=== PATIENT | female | born 1940 | race Caucasian/White ===

== ENCOUNTER 2019-01-05 13:58 | Observation (INO) ==
[2019-01-05] MEDS ORDERED: 0.9 % Sodium Chloride 1,000 ML IVC ONE (14:17)
[2019-01-05 14:52] LABS: Basophils # 0.1 K/mcL (0.0-0.2); Basophils % 0.7 %; Eosinophils # 0.2 K/mcL (0.0-0.6); Eosinophils % 1.9 %; Hematocrit 40.5 % (35.3-44.9); Hemoglobin 12.5 g/dL (11.5-15.4); Immature Granulocytes % 0.7 % (0-4); Lymphocytes # 1.2 K/mcL (0.6-4.6); Lymphocytes % 14.6 %; Mean Corpuscular HGB Conc 30.9 g/dL (31.6-35.5); Mean Corpuscular Hemoglobin 28.3 pg (28.0-33.3); Mean Corpuscular Volume 91.8 fL (83.0-100.0); Mean Platelet Volume 10.2 fL (9.4-12.4); Monocytes % 12.3 %; Neutrophils # 5.6 K/mcL (1.6-8.9); Platelet Count 182 K/mcL (140-400); Red Blood Count 4.41 M/mcL (3.82-4.97); Segmented Neutrophils % 69.8 %
[2019-01-05 14:58] LABS: Bilirubin,Urine Negative (Negative); Blood,Urine Negative (Negative); Clarity,Urine Clear (Clear); Color,Urine Yellow (Yellow); Glucose,Urine (UA) Normal (Normal); Ketones,Urine Negative (Negative); Leukocyte Esterase,Urine Trace (Negative); Nitrite,Urine Negative (Negative); Protein,Urine Negative (Neg-Trace); Urobilinogen,Urine Normal (Normal)
[2019-01-05 14:59] LABS: Bacteria,Urine None Seen per hpf (None-Few); Hyaline Casts,Urine None Seen per lpf (None-Few); RBC,Urine 0-3 per hpf (0-3); Squamous Epithelial Cell,Urine Many per lpf (None-Few)
[2019-01-05 15:11] LABS: INR 1.2
--- NOTE | 2019-01-05 15:41 | Emergency Department Note ---
Disposition Clinical Impression: Transient confusion, Bronchitis Disposition: Admitted As Inpatient Time of Disposition: 16:39 General Adult HPI - General Chief complaint: ED Neuro Symptoms/Deficit Stated complaint: Stroke from Dr. Fung Time Seen by Provider: 01/05/19 14:10 Source: patient, other Limitations: altered mental status Nursing Notes Reviewed: Yes Vital Signs Reviewed: Yes - History of Present Illness HPI Narrative: Female patient presenting to emergency department from Dr. Fuentes's office. She was going in for a general checkup but she does have bronchitis and is being treated with antibiotics and cough suppressants currently. She was noted to be confused when she went back with Dr. Fung. The daughter is at bedside with the patient and believes that the patient may have gotten a little anxious whenever she was asked to come back without her. The daughter states that they are generally around each other generally answer the questions for each other. The patient has been treated for bronchitis and is on antibiotic as well as a cough suppressant which include codeine. The patient has no complaints currently other than she states she is confused. Pain Scale: 0 - Related Data Home Medications Medication Instructions Recorded Confirmed RX: Duloxetine HCl [Cymbalta] 120 mg PO DAILY 08/12/15 01/05/19 Fluticasone/Vilanterol [Breo 1 each IH DAILY 07/15/18 01/05/19 Ellipta 200-25 Mcg INH] Montelukast [Singulair] 10 mg PO DAILY 07/15/18 01/05/19 RX: Furosemide [Lasix] 20 mg PO BID 07/15/18 01/05/19 RX: Lisinopril 2.5 mg PO DAILY 07/15/18 01/05/19 Methylcellulose [Citrucel] 500 mg PO DAILY 10/20/18 01/05/19 RX: Docusate [Colace] 100 mg PO DAILY 10/20/18 01/05/19 Apixaban [Eliquis] 1.25 mg PO BID 01/05/19 01/05/19 Metoprolol [Lopressor] 12.5 mg PO BID 01/05/19 01/05/19 RX: Nitroglycerin [Nitrostat] 0.4 mg SL PRN PRN 01/05/19 01/05/19 Theophylline Anhydrous 200 mg PO BID 01/05/19 01/05/19 [Theophylline] Allergies Allergy/AdvReac Type Severity Reaction Status Date / Time albuterol Allergy Difficulty Verified 01/03/19 17:53 Breathing codeine Allergy Difficulty Verified 01/03/19 17:53 Breathing Metolazone Allergy Difficulty Verified 01/03/19 17:53 Breathing morphine Allergy See Verified 01/03/19 17:53 Comments rubber Allergy Hives Uncoded 01/03/19 17:53 All systems ED: reviewed and negative except as stated. Review of Systems: As Per HPI Constitutional: Denies: fever Cardiovascular: Denies: chest pain, syncope Respiratory: Reports: cough, dyspnea, sputum production Gastrointestinal: Denies: abdominal pain, nausea, vomiting, diarrhea Integumentary: Denies: rash Neurological: Reports: weakness Past Medical History - Past Medical History Attestation: Yes The following information was validated with the patient. 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 Absent: scleral icterus, conjunctival injection - ENT ENT exam: normal exam, normal oropharynx, mucous membranes moist - Neck Neck exam: Present: normal inspection, full ROM, trachea midline - Chest Chest inspection: Present: normal inspection, symmetric chest wall rise - Respiratory Respiratory exam: Present: normal lung sounds bilaterally. Absent: respiratory distress - Cardiovascular Cardiovascular exam: Present: regular rate, normal rhythm, normal heart sounds - Abdominal Exam Abdominal exam: Present: soft, Non-Tender. Absent: tenderness, distention, guarding, rebound, rigidity, organomegaly - Extremities Exam Extremities exam: Present: normal inspection, full ROM. Absent: tenderness, pedal edema - Neurological Exam Neurological exam: Present: alert, CN II-XII intact, other (Good motor function. 5 out of 5 strength bilaterally. No decrease in sensation. Good [id number] bilaterally.) - Psychiatric Psychiatric exam: Present: normal affect, normal mood - Skin Skin exam: Present: warm, dry, intact, normal color. Absent: rash, cyanosis, diaphoresis Course Course Narrative: Female patient with transient confusion. Daughter states that this generally happens when the patient gets a urinary tract infection. She is currently being treated for bronchitis. She denies any fevers or chills. She does report that she has a productive cough. Has been seen by Dr. osorio today for this however was found to be markedly confused after she was taken back to the room by herself. Currently patient has no neuro deficits other than being confused. He is pleasant with no distress noted. Vitals are stable. We will get a CT of p atient's head at this time until basic lab workup. Again daughter is insistent that these symptoms are consistent with when she has had a UTI previously. The daughter reports no falls. Patient does take Eliquis daily. - Reevaluation(s) Reevaluation #1: Upon reevaluation patient is back at baseline. She has no complaints. She states that she does get confused after she takes her cough medication occasionally. The daughter again states that she believes that the patient just got anxious while she was taken back with Dr. fung. Daughter is insistent that the patient does have these symptoms happen to her frequently. The daughter states that she generally associated with a urinary tract infection. She is the patient has not had a fever recently but she does have a productive cough. We will admit patient to the hospital for her transient confusion. Time: 16:10 - Consultations Consultation #1: Dr. Matos accepted patient in stable condition. Time: 16:36 Vital Signs Temperature 98.0 F 01/05/19 14:00 Pulse Rate 64 01/05/19 14:00 Respiratory Rate 20 01/05/19 14:00 Blood Pressure 145/68 01/05/19 14:00 O2 Sat by Pulse Oximetry 95 01/05/19 14:00 Temperature 98.3 F 01/05/19 14:19 Pulse Rate 63 01/05/19 15:47 Respiratory Rate 20 01/05/19 15:47 Blood Pressure 149/73 01/05/19 15:47 O2 Sat by Pulse Oximetry 100 01/05/19 15:47 Oxygen Delivery Oxygen Delivery Nasal Cannula Medical Decision Making - Medical Records Medical records reviewed: Yes I reviewed the patient's medical records. - Lab Data Lab results reviewed: Yes I reviewed the patient's lab results. Result diagrams: 01/05/19 14:35 01/05/19 15:19 Lab Results 01/05/19 01/05/19 01/05/19 Range/Units 14:25 14:35 14:35 WBC 8.0 (4.3-11.1) K/mcL RBC 4.41 (3.82-4.97) M/mcL Hgb 12.5 (11.5-15.4) g/dL Hct 40.5 (35.3-44.9) % MCV 91.8 (83.0-100.0) fL MCH 28.3 (28.0-33.3) pg MCHC 30.9 L (31.6-35.5) g/dL RDW 14.0 (11.5-14.5) % Plt Count 182 (140-400) K/mcL MPV 10.2 (9.4-12.4) fL Immature Gran % 0.7 (0-4) % Seg Neutrophils % 69.8 % Lymphocytes % 14.6 % Monocytes % 12.3 % Eosinophils % 1.9 % Basophils % 0.7 % Neutrophils # 5.6 (1.6-8.9) K/mcL Lymphocytes # 1.2 (0.6-4.6) K/mcL Monocytes # 1.0 (0.0-1.3) K/mcL Eosinophils # 0.2 (0.0-0.6) K/mcL Basophils # 0.1 (0.0-0.2) K/mcL PT 14.0 H (9.4-12.1) Seconds INR 1.2 APTT 25.0 L (26.0-36.0) Seconds Sodium (136-145) mEq/L Potassium (3.5-5.1) mEq/L Chloride (98-107) mEq/L Carbon Dioxide (23-29) mEq/L BUN (8-23) mg/dL Creatinine (0.60-1.20) mg/dL Est GFR ( Amer) (> 60) Est GFR (Non-Af Amer) (> 60) BUN/Creatinine Ratio (6-26) Glucose (70-105) mg/dL Calculated Osmolality (280-300) Lactic Acid (0.5-2.2) mmol/L Calcium (8.6-10.3) mg/dL Total Bilirubin (0.3-1.0) mg/dL AST (13-39) Units/L ALT (7-52) Units/L Alkaline Phosphatase (34-104) Units/L Creatine Kinase (30-223) Units/L Troponin I < 0.03 (< 0.04) ng/mL Serum Total Protein (6.4-8.9) g/dL Albumin (3.5-5.7) g/dL Globulin (2.4-3.5) g/dL Albumin/Globulin Ratio (1.1-2.2) Urine Color (Yellow) Urine Clarity (Clear) Urine pH (5.0-8.0) pH Units Ur Specific [place] (1.010-1.025) Urine Protein (Neg-Trace) mg/dL Urine Glucose (UA) (Normal) mg/dL Urine Ketones (Negative) mg/dL Urine Blood (Negative) Urine Nitrite (Negative) Urine Bilirubin (Negative) Urine Urobilinogen (Normal) mg/dL Ur Leukocyte Esterase (Negative) Urine Microscopic RBC (0-3) per hpf Urine Microscopic WBC (0-3) per hpf Ur Squamous Epith Cells (None-Few) per lpf Urine Bacteria (None-Few) per hpf Hyaline Casts (None-Few) per lpf Ur Culture Indicated? (NO) Ethyl Alcohol (Less than 10) mg/dL Specimen Rejected 01/05/19 01/05/19 01/05/19 Range/Units 14:35 14:46 15:19 WBC (4.3-11.1) K/mcL RBC (3.82-4.97) M/mcL Hgb (11.5-15.4) g/dL Hct (35.3-44.9) % MCV (83.0-100.0) fL MCH (28.0-33.3) pg MCHC (31.6-35.5) g/dL RDW (11.5-14.5) % Plt Count (140-400) K/mcL MPV (9.4-12.4) fL Immature Gran % (0-4) % Seg Neutrophils % % Lymphocytes % % Monocytes % % Eosinophils % % Basophils % % Neutrophils # (1.6-8.9) K/mcL Lymphocytes # (0.6-4.6) K/mcL Monocytes # (0.0-1.3) K/mcL Eosinophils # (0.0-0.6) K/mcL Basophils # (0.0-0.2) K/mcL PT (9.4-12.1) Seconds INR APTT (26.0-36.0) Seconds Sodium 139 (136-145) mEq/L Potassium 4.3 (3.5-5.1) mEq/L Chloride 103 (98-107) mEq/L Carbon Dioxide 29 (23-29) mEq/L BUN 36 H (8-23) mg/dL Creatinine 1.60 H (0.60-1.20) mg/dL Est GFR ( Amer) 38 L (> 60) Est GFR (Non-Af Amer) 31 L (> 60) BUN/Creatinine Ratio 23 (6-26) Glucose 110 H (70-105) mg/dL Calculated Osmolality 297 (280-300) Lactic Acid (0.5-2.2) mmol/L Calcium 9.6 (8.6-10.3) mg/dL Total Bilirubin 0.4 (0.3-1.0) mg/dL AST 13 (13-39) Units/L ALT 9 (7-52) Units/L Alkaline Phosphatase 73 (34-104) Units/L Creatine Kinase 64 (30-223) Units/L Troponin I (< 0.04) ng/mL Serum Total Protein 6.4 (6.4-8.9) g/dL Albumin 3.5 (3.5-5.7) g/dL Globulin 2.9 (2.4-3.5) g/dL Albumin/Globulin Ratio 1.2 (1.1-2.2) Urine Color Yellow (Yellow) Urine Clarity Clear (Clear) Urine pH 6.0 (5.0-8.0) pH Units Ur Specific [place] 1.010 (1.010-1.025) Urine Protein Negative (Neg-Trace) mg/dL Urine Glucose (UA) Normal (Normal) mg/dL Urine Ketones Negative (Negative) mg/dL Urine Blood Negative (Negative) Urine Nitrite Negative (Negative) Urine Bilirubin Negative (Negative) Urine Urobilinogen Normal (Normal) mg/dL Ur Leukocyte Esterase Trace H (Negative) Urine Microscopic RBC 0-3 (0-3) per hpf Urine Microscopic WBC 5-15 H (0-3) per hpf Ur Squamous Epith Cells Many H (None-Few) per lpf Urine Bacteria None Seen (None-Few) per hpf Hyaline Casts None Seen (None-Few) per lpf Ur Culture Indicated? NO. A (NO) Ethyl Alcohol < 10 (Less than 10) mg/dL Specimen Rejected Hemolyzed 01/05/19 Range/Units 15:46 WBC (4.3-11.1) K/mcL RBC (3.82-4.97) M/mcL Hgb (11.5-15.4) g/dL Hct (35.3-44.9) % MCV (83.0-100.0) fL MCH (28.0-33.3) pg MCHC (31.6-35.5) g/dL RDW (11.5-14.5) % Plt Count (140-400) K/mcL MPV (9.4-12.4) fL Immature Gran % (0-4) % Seg Neutrophils % % Lymphocytes % % Monocytes % % Eosinophils % % Basophils % % Neutrophils # (1.6-8.9) K/mcL Lymphocytes # (0.6-4.6) K/mcL Monocytes # (0.0-1.3) K/mcL Eosinophils # (0.0-0.6) K/mcL Basophils # (0.0-0.2) K/mcL PT (9.4-12.1) Seconds INR APTT (26.0-36.0) Seconds Sodium (136-145) mEq/L Potassium (3.5-5.1) mEq/L Chloride (98-107) mEq/L Carbon Dioxide (23-29) mEq/L BUN (8-23) mg/dL Creatinine (0.60-1.20) mg/dL Est GFR ( Amer) (> 60) Est GFR (Non-Af Amer) (> 60) BUN/Creatinine Ratio (6-26) Glucose (70-105) mg/dL Calculated Osmolality (280-300) Lactic Acid 0.8 (0.5-2.2) mmol/L Calcium (8.6-10.3) mg/dL Total Bilirubin (0.3-1.0) mg/dL AST (13-39) Units/L ALT (7-52) Units/L Alkaline Phosphatase (34-104) Units/L Creatine Kinase (30-223) Units/L Troponin I (< 0.04) ng/mL Serum Total Protein (6.4-8.9) g/dL Albumin (3.5-5.7) g/dL Globulin (2.4-3.5) g/dL Albumin/Globulin Ratio (1.1-2.2) Urine Color (Yellow) Urine Clarity (Clear) Urine pH (5.0-8.0) pH Units Ur Specific [place] (1.010-1.025) Urine Protein (Neg-Trace) mg/dL Urine Glucose (UA) (Normal) mg/dL Urine Ketones (Negative) mg/dL Urine Blood (Negative) Urine Nitrite (Negative) Urine Bilirubin (Negative) Urine Urobilinogen (Normal) mg/dL Ur Leukocyte Esterase (Negative) Urine Microscopic RBC (0-3) per hpf Urine Microscopic WBC (0-3) per hpf Ur Squamous Epith Cells (None-Few) per lpf Urine Bacteria (None-Few) per hpf Hyaline Casts (None-Few) per lpf Ur Culture Indicated? (NO) Ethyl Alcohol (Less than 10) mg/dL Specimen Rejected - Radiology Data Radiology results reviewed: Yes I reviewed the patient's radiology results. Chest X-Ray 01/05/19 14:14 IMPRESSION: No acute process. D/ / Kushal Enciso MD / Kushal Enciso MD Interpreting Provider: Kushal Enciso MD Head CT 01/05/19 14:16 IMPRESSION: No acute intracranial abnormality. Diffuse atrophic changes with findings suggesting chronic microvascular ischemia D/ / Kushal Enciso MD / Kushal Enciso MD Interpreting Provider: Kushal Enciso MD - EKG Data EKG #1 EKG attestation: Yes I reviewed and interpreted this EKG. EKG results narrative: Sinus rhythm at a rate of 73. ID interval is 152. QRS duration is 102. QT is 435. QTC is 453 by. Patient does have 2 PVCs on this tracing noted. No signs of acute ischemia. For R-wave progression. No significant change from previous EKG dated 09/08/2018. Attestation Statement - Attestation Attestation: Resident Attestation: I examined this patient and my medical decision making was reviewed with the Resident Physician. I agree with the documented findings, disposition and treatment plan as described except to the extent set forth below. We independently had [id number] contact with the patient. Patient presenting from primary care physician office for episode of confusion while in her office. Patient seems not know where she was or what was going on. There was no seizure-like activity. She has family at bedside which states this has happened with previous UTI. Patient does have some confusion but is able to respond to questions and talk without slurred speech. Patient has no other focal neurologic deficits. Due to confusion being her only symptom at this time and previous explanations, a stroke alert was not activated. Further workup for underlying infectious versus other etiology initiated.
[2019-01-05 16:16] LABS: Alanine Aminotransferase 9 Units/L (7-52); Albumin 3.5 g/dL (3.5-5.7); Albumin/Globulin Ratio 1.2 (1.1-2.2); Alkaline Phosphatase 73 Units/L (34-104); Aspartate Amino Transferase 13 Units/L (13-39); BUN/Creatinine Ratio 23 (6-26); Bilirubin,Total 0.4 mg/dL (0.3-1.0); Blood Urea Nitrogen 36 mg/dL (8-23); Calcium 9.6 mg/dL (8.6-10.3); Carbon Dioxide 29 mEq/L (23-29); Chloride 103 mEq/L (98-107); Creatine Kinase 64 Units/L (30-223); Ethanol < 10 mg/dL (Less than 10); Globulin 2.9 g/dL (2.4-3.5); Glucose 110 mg/dL (70-105); Osmolality,Calculated 297 (280-300); Potassium 4.3 mEq/L (3.5-5.1); Sodium 139 mEq/L (136-145); Total Protein 6.4 g/dL (6.4-8.9); eGFR For Non-African Americans 31 (> 60)
[2019-01-05] MEDS ORDERED: Naloxone 0.4 MG/ML INJ IVP PRN (19:43)
--- NOTE | 2019-01-05 21:41 | Internal Med History&Physical ---
Date of Encounter: 01/05/19 Time of Encounter: 19:00 Internal Medicine - H&P: HPI Chief complaint: Confusion Admitted From: Home Plans for Post Hospital Care: Home History of present illness: The patient is an 78-year old woman, who has had long-standing history of multiple medical problems (mentioned below in past medical history). She has had symptoms suggesting upper respiratory infection (possible acute bronchitis) for about 10 days. It was about 10 days ago when she was evaluated by her primary care physicianreceived some medications including cough syrup with codeine. Shortly after she developed periods of confusion (out is by her family). The patient does not feel confused. She has a low bit trouble to remember things from the near past. Otherwise, she feels good. She continues to have relatively mild cough but not wheezing. Denies fever and chills. She has no GI or symptoms. PAST MEDICAL HX: Atrial fibrillation, coronary artery disease, COPD, type 2 diabetes mellitus, hypertension and hyperlipidemia. She was diagnosed with myocardial infarction and DVT in the past. She has developed CKD stage III secondary to long-standing type 2 diabetes mellitus and hypertension. She takes daily Lasix. It is likely for treatment of diastolic heart failure. Her last echocardiogram was done in 2016. HDL ferris normal ejection fraction and mild concentric left ventricular hypertrophy. PAST FAMILY HX: See below PAST SOCIAL HX: See below Medications: She takes multiple medications including Eliquis, Lopressor, lisinopril, Lasix, Breo Ellipta, Lipitor. Theophylline, Singulair, Colace, Citrucel and Cymbalta. She was recently started on some cough syrup, likely containing codeine. REVIEW OF SYSTEMS: All 14 organ systems were reviewed by me with the patient. Positive and pertinent negative findings are listed above. The rest of organ systems is negative. PHYSICAL EXAM: Skin: Free of rash and discoloration. Eyes: Sclera is white. There is no discharge from eyes. ENMT: Oral/pharyngeal mucosa is normal in appearance. There is no discharge from nose or ears. Respiratory: Normal breath sounds with no crackles and wheezes bilaterally. CV: Heart is regular with no gallop or murmur. GI: Abdomen is flat and soft with no palpable mass or visceromegaly. : There is no tenderness in patient's flanks bilaterally. Neuro exam: He has good strength in upper and lower extremities. He has normal eye movements. Psychiatric: He has normal affect. His thought process is appropriate to the situation. ADDITIONAL DATA: CBC shows normal findings. Pro time INR is 1.2. Electrolytes are normal. Creatinine is 1.60 with a GFR of 31. She had creatinine of 1.25 with a GFR of 41 on 09/09/18. Hepatic panel is normal. UA does not show any significant findings. CT of brain/head does not show any acute intracranial abnormality. It shows diffuse atrophic changes with findings suggesting chronic microvascular ischemia. Chest x-ray shows normal findings. A/P: Confusion. Likely secondary to medications. I would not give her anything with codeine or similar. I will also put hold on theophylline and Cymbalta. Upper respiratory infection/possible COPD exacerbation. I will offer her every 6 hours nebulizer treatment with DuoNeb. She will get low-dose prednisone at 20 mg every morning. Her other medical problems are listed in past medical history. They seem to be stable/under control. Past Med Surg Social Fam HX - Past Medical History Medical history: asthma, atrial fibrillation, COPD, coronary artery disease, DVT, diabetes, hyperlipidemia, hypertension, myocardial infarction, renal disease, venous stasis Additional medical history: Pinched nerves, sciatica, bulging disc. Psychiatric history: anxiety, depression - Past Surgical History Surgical History: appendectomy, breast surgery, cholecystectomy, coronary bypass (CABG), hysterectomy Additional surgical history: Breast reduction. Back stimulator - Social History Smoking Status: Former smoker Smokeless Tobacco Status: No Alcohol use: none Drug use: none - Family History Mother Living Status: Hx Family Cardiac Disorders: Yes (Had rheumatic fever as a child.) Father Living Status: Hx Family Cardiac Disorders: Yes Hx Family Respiratory Disorders: Yes (Lung cancer) Hx Family Cancer: Yes Hx Family Endocrine Disorder: Yes (DM) Brother Living Status: Still Living Hx Family Cardiac Disorders: Yes Hx Family Endocrine Disorder: Yes (DM) Internal Medicine - H&P: Meds Duloxetine HCl [Cymbalta] 120 mg PO DAILY 08/12/15 [History] Fluticasone/Vilanterol [Breo Ellipta 200-25 Mcg INH] 1 each IH DAILY 07/15/18 [History] Furosemide [Lasix] 20 mg PO BID 07/15/18 [History] Lisinopril 2.5 mg PO DAILY 07/15/18 [History] Montelukast [Singulair] 10 mg PO DAILY 07/15/18 [History] Docusate [Colace] 100 mg PO DAILY 10/20/18 [History] Methylcellulose [Citrucel] 500 mg PO DAILY 10/20/18 [History] Apixaban [Eliquis] 1.25 mg PO BID 01/05/19 [History] Metoprolol [Lopressor] 12.5 mg PO BID 01/05/19 [History] Nitroglycerin [Nitrostat] 0.4 mg SL PRN PRN 01/05/19 [History] Theophylline Anhydrous [Theophylline] 200 mg PO BID 01/05/19 [History] Allergy/AdvReac Type Severity Reaction Status Date / Time albuterol Allergy Difficulty Verified 01/03/19 17:53 Breathing codeine Allergy Difficulty Verified 01/03/19 17:53 Breathing Metolazone Allergy Difficulty Verified 01/03/19 17:53 Breathing morphine Allergy See Verified 01/03/19 17:53 Comments rubber Allergy Hives Uncoded 01/03/19 17:53 - Constitutional Vitals: Temp Pulse Resp BP Pulse Ox 98.4 F 74 20 114/66 100 01/05/19 21:27 01/05/19 21:27 01/05/19 21:27 01/05/19 21:27 01/05/19 21:27 General appearance: Present: A&O X 3, no acute distress, answers questions appropriately Exam: xx Internal Med - H&P Results - Labs CBC & Chem 7: 01/05/19 14:35 01/05/19 15:19 Labs: Short CBC 01/05/19 Range/Units 14:35 WBC 8.0 (4.3-11.1) K/mcL Hgb 12.5 (11.5-15.4) g/dL Hct 40.5 (35.3-44.9) % Plt Count 182 (140-400) K/mcL Neutrophils # 5.6 (1.6-8.9) K/mcL BMP 01/05/19 15:19 Sodium 139 Potassium 4.3 Chloride 103 Carbon Dioxide 29 BUN 36 H Creatinine 1.60 H Glucose 110 H Calcium 9.6 Cardiac Enzymes 01/05/19 Range/Units 14:35 Troponin I < 0.03 (< 0.04) ng/mL Liver Function 01/05/19 Range/Units 15:19 Total Bilirubin 0.4 (0.3-1.0) mg/dL AST 13 (13-39) Units/L ALT 9 (7-52) Units/L Alkaline Phosphatase 73 (34-104) Units/L Albumin 3.5 (3.5-5.7) g/dL Urine 01/05/19 Range/Units 14:46 Urine Color Yellow (Yellow) Urine Clarity Clear (Clear) Urine pH 6.0 (5.0-8.0) pH Units Ur Specific [place] 1.010 (1.010-1.025) Urine Protein Negative (Neg-Trace) mg/dL Urine Glucose (UA) Normal (Normal) mg/dL - Impressions ITS Impressions Chest X-Ray 01/05/19 14:14 IMPRESSION: No acute process. D/ / Kushal Enciso MD / Kushal Enciso MD Interpreting Provider: Kushal Enciso MD Head CT 01/05/19 14:16 IMPRESSION: No acute intracranial abnormality. 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
[2019-01-05] MEDS ORDERED: Nitroglycerin 0.4 MG TAB.SUBL SL PRN (22:08)
[2019-01-06] MEDS: Ipratropium/Albuterol Neb 3 ML IH SCH ×3 (03:49→15:39)
[2019-01-06] MEDS ORDERED: predniSONE 20 MG TABLET PO SCH (09:00)
[2019-01-06] MEDS ORDERED: Furosemide 40 MG TABLET PO SCH (09:00)
[2019-01-06] MEDS ORDERED: METHYLCELLULOSE 500 MG PO SCH (09:00)
[2019-01-06] MEDS ORDERED: Apixaban 2.5 MG TABLET PO SCH (09:00)
[2019-01-06 14:25] LABS: Calcium 9.9 mg/dL (8.6-10.3); Potassium 4.4 mEq/L (3.5-5.1)
[2019-01-06 14:27] VITALS: BP 95/53
--- NOTE | 2019-01-06 16:49 | Discharge Summary ---
Orders not resulted at time of discharge: Pending orders 01/06/19 10:19 Culture,Sputum with Gram Stain [] Stat Date of Encounter: 01/06/19 Time of Encounter: 16:37 - Discharge Diagnosis (1) Confusion Priority: Primary Status: Acute (2) URI (upper respiratory infection) Priority: Primary Status: Acute Qualifiers: URI type: unspecified viral URI Qualified Code(s): J06.9 - Acute upper respiratory infection, unspecified (3) COPD exacerbation Priority: Secondary Status: Chronic (4) Hypertensive renal disease with renal failure Priority: Secondary Status: Chronic Hospital course: HOSPITAL COURSE: The patient is an 78-year-old woman. She presented to us with confusion in the last few days preceding this admission. It started shortly after she received treatments for upper respiratory tract infection; need to include some cough syrup suspected to have codeine. CT of head/brain did not reveal any acute abnormality. CBC was normal. Electrolytes were normal. Creatinine was 1.60her baseline (CKD stage III). We discontinued her cough syrup. We also put hold on theophylline and Cymbalta. We offered her nebulizer treatments with DuoNeb every 6 hours. With prednisone at 20 mg every morning. We controlled her cough with Tessalon Perles. Her confusion subsided. CONDITION AT DISCHARGE: She feels good. Her cough is mild. Without wheezing. Denies chest pain. Denies difficulty breathing. She ambulates on her own. Skin: Free of rash and discoloration. Respiratory: Normal breath sounds with no crackles and wheezes bilaterally. CV: Heart is regular with no gallop or murmur. GI: Abdomen is flat and soft with no palpable mass or visceromegaly. Neuro exam: There is no focal deficits. Normal speech, swallowing and gait. SEE DISCHARGE ORDERS/MEDICATIONS The patient will be not taking codeine containing preparations. She will be not taking theophylline. Her dose of Cymbalta was decreased to 60 mg by mouth daily. She received 20 pearles of Tessalon. Discharge discussed with: patient, family - Time Spent with Patient Total time spent providing and/or coordinating discharge services: Time spent: Greater than 30 minutes (35 minutes...) - Discharge Medications Prescriptions: New Benzonatate [Tessalon] 100 mg PO Q6H PRN #20 capsule PRN Reason: Cough Continue Apixaban [Eliquis] 1.25 mg PO BID Metoprolol [Lopressor] 12.5 mg PO BID Nitroglycerin [Nitrostat] 0.4 mg SL PRN PRN PRN Reason: Chest Pain Lisinopril 2.5 mg PO DAILY Montelukast [Singulair] 10 mg PO DAILY Furosemide [Lasix] 20 mg PO BID Fluticasone/Vilanterol [Breo Ellipta 200-25 Mcg INH] 1 each IH DAILY Docusate [Colace] 100 mg PO DAILY Methylcellulose [Citrucel] 500 mg PO DAILY Changed Duloxetine HCl [Cymbalta] 60 mg PO DAILY #30 capsule. Discontinued Theophylline Anhydrous [Theophylline] 200 mg PO BID Home Medications: Fluticasone/Vilanterol [Breo Ellipta 200-25 Mcg INH] 1 each IH DAILY 07/15/18 [History] Furosemide [Lasix] 20 mg PO BID 07/15/18 [History] Lisinopril 2.5 mg PO DAILY 07/15/18 [History] Montelukast [Singulair] 10 mg PO DAILY 07/15/18 [History] Docusate [Colace] 100 mg PO DAILY 10/20/18 [History] Methylcellulose [Citrucel] 500 mg PO DAILY 10/20/18 [History] Apixaban [Eliquis] 1.25 mg PO BID 01/05/19 [History] Metoprolol [Lopressor] 12.5 mg PO BID 01/05/19 [History] Nitroglycerin [Nitrostat] 0.4 mg SL PRN PRN 01/05/19 [History] Benzonatate [Tessalon] 100 mg PO Q6H PRN #20 capsule 01/06/19 [Rx] Duloxetine HCl [Cymbalta] 60 mg PO DAILY #30 capsule. 01/06/19 [Rx] Allergies/Adverse Reactions: Allergy/AdvReac Type Severity Reaction Status Date / Time albuterol Allergy Difficulty Verified 01/03/19 17:53 Breathing codeine Allergy Difficulty Verified 01/03/19 17:53 Breathing Metolazone Allergy Difficulty Verified 01/03/19 17:53 Breathing morphine Allergy See Verified 01/03/19 17:53 Comments rubber Allergy Hives Uncoded 01/03/19 17:53 Date of admission: 01/05/19 18:52 Primary care physician: Sandy Fung CNP Consults: 01/05/19 22:09 Consult to Pastoral Services [CONS] Routine Comment: Discharging clinician: Preston Pereira Anticipated date of discharge: 01/06/19 - Constitutional Vitals: Temp Pulse Resp BP Pulse Ox 97.5 F L 71 16 95/53 98 01/06/19 14:25 01/06/19 14:25 01/06/19 15:41 01/06/19 14:25 01/06/19 15:41 General appearance: Present: A&O X 3, no acute distress, answers questions appropriately Exam: xx - Patient Status Disposition: Home, Self-Care Condition: Good Functional capacity at discharge: independent ambulation Overall status at discharge: patient is back to baseline - Discharge Instructions Follow Up With: Sandy Fung CNP [Primary Care Provider] - 01/17/19 10:30 am - Diet and Activity Activity: resume usual activities as tolerated Diet: advance to your usual diet
[2019-01-06] MEDS ORDERED: Furosemide 20 MG TABLET PO SCH (17:00)
== END 2019-01-06 17:26 | disposition home or self-care (01) ==
LOC: EMEROOARM 13:58 → 3ANU 13:58 → SUATTDRO 18:52 → 3ANU 20:42
PROVIDERS: ADMIT Internal Medicine; ATTEND Internal Medicine

== ENCOUNTER 2021-03-05 17:29 | Observation (INO) ==
[2021-03-05] MEDS ORDERED: ceFAZolin 1,000 MG in Water for inj. (sterile) 10 ML IVP ONE (19:33)
[2021-03-05] MEDS ORDERED: Isovue-370 500 ML BOTTLE IVP ONE (19:34)
[2021-03-05 20:07] LABS: Basophils % 0.8 %; Eosinophils # 0.2 K/mcL (0.0-0.6); Eosinophils % 3.7 %; Hematocrit 37.5 % (35.3-44.9); Hemoglobin 11.4 g/dL (11.5-15.4); Immature Granulocytes % 0.2 % (0-4); Lymphocytes # 0.7 K/mcL (0.6-4.6); Lymphocytes % 14.7 %; Mean Corpuscular HGB Conc 30.4 g/dL (31.6-35.5); Mean Corpuscular Hemoglobin 26.2 pg (28.0-33.3); Mean Corpuscular Volume 86.2 fL (83.0-100.0); Mean Platelet Volume 10.1 fL (9.4-12.4); Monocytes # 0.7 K/mcL (0.0-1.3); Monocytes % 13.4 %; Neutrophils # 3.3 K/mcL (1.6-8.9); Platelet Count 139 K/mcL (140-400); Red Blood Count 4.35 M/mcL (3.82-4.97); Red Cell Distribution Width 14.6 % (11.5-14.5); Segmented Neutrophils % 67.2 %; White Blood Count 4.9 K/mcL (4.3-11.1)
[2021-03-05 20:50] LABS: Bacteria,Urine Few per hpf (None-Few); Bilirubin,Urine Negative (Negative); Blood,Urine Negative (Negative); Clarity,Urine Turbid (Clear); Color,Urine Light-Yellow (Yellow); Glucose,Urine (UA) Normal (Normal); Hyaline Casts,Urine Few per lpf (None Seen); Ketones,Urine Negative (Negative); Leukocyte Esterase,Urine Large (Negative); Mucus,Urine Few per lpf (None-Few); Nitrite,Urine Negative (Negative); PH,Urine 6.5 pH Units (5.0-8.0); Protein,Urine Negative (Neg-Trace); RBC,Urine 0-3 per hpf (0-3); Squamous Epithelial Cell,Urine Few per hpf (None-Few); Urobilinogen,Urine Normal (Normal); WBC,Urine 30-50 per hpf (0-3)
[2021-03-05 20:51] LABS: Albumin 3.6 g/dL (3.5-5.7); Albumin/Globulin Ratio 1.5 (1.1-2.2); Bilirubin,Direct 0.1 mg/dL (0.0-0.2); Bilirubin,Indirect 0.7 mg/dL (0.0-1.0); Bilirubin,Total 0.8 mg/dL (0.3-1.0); Calcium 9.2 mg/dL (8.6-10.3); Globulin 2.4 g/dL (2.4-3.5)
[2021-03-05] MEDS ORDERED: 0.9 % Sodium Chloride 1,000 ML IVC SCH (21:00)
[2021-03-05] MEDS ORDERED: *HR* Heparin 5,000 UNIT/ML VIAL IVP ONE (22:17)
[2021-03-05] MEDS ORDERED: *HR* Heparin 5,000 UNIT/ML VIAL IVP PRN ×4 (22:17→22:33)
[2021-03-05] MEDS ORDERED: Heparin 25,000UNIT/250ML 1/2NS 25,000 UNIT/250 ML IV.SOLN IVC SCH ×2 (22:30→22:45)
[2021-03-05 23:01] LABS: INR 1.3; Prothrombin Time 14.5 Seconds (9.4-12.1)
[2021-03-05 23:03] LABS: Activated Partial Thrombo Time 31.9 Seconds (26.0-36.0)
[2021-03-06] MEDS ORDERED: Melatonin 3 MG TABLET PO PRN (02:14)
[2021-03-06] MEDS ORDERED: Naloxone 0.4 MG/ML INJ IVP PRN (02:14)
[2021-03-06] MEDS ORDERED: Ondansetron 4 MG/2 ML VIAL IVP PRN (02:14)
[2021-03-06] MEDS ORDERED: Ipratropium/Albuterol Neb 3 ML IH PRN (03:40)
[2021-03-06] MEDS: Ipratropium/Albuterol Neb 3 ML IH SCH ×2 (06:02→07:21)
[2021-03-06 07:18] LABS: Basophils % 0.7 %; Eosinophils # 0.2 K/mcL (0.0-0.6); Eosinophils % 4.5 %; Hematocrit 40.9 % (35.3-44.9); Hemoglobin 12.6 g/dL (11.5-15.4); Immature Granulocytes % 0.2 % (0-4); Lymphocytes # 0.8 K/mcL (0.6-4.6); Lymphocytes % 18.4 %; Mean Corpuscular HGB Conc 30.8 g/dL (31.6-35.5); Mean Corpuscular Hemoglobin 26.7 pg (28.0-33.3); Mean Corpuscular Volume 86.7 fL (83.0-100.0); Mean Platelet Volume 10.4 fL (9.4-12.4); Monocytes # 0.5 K/mcL (0.0-1.3); Monocytes % 12.6 %; Neutrophils # 2.7 K/mcL (1.6-8.9); Platelet Count 137 K/mcL (140-400); Red Blood Count 4.72 M/mcL (3.82-4.97); Red Cell Distribution Width 14.5 % (11.5-14.5); Segmented Neutrophils % 63.6 %; White Blood Count 4.2 K/mcL (4.3-11.1)
[2021-03-06 07:20] LABS: INR 1.2; Prothrombin Time 13.5 Seconds (9.4-12.1)
[2021-03-06 07:47] LABS: Chol/HDL Ratio 3.6 (0-4.9); Magnesium 2.3 mg/dL (1.6-2.6); Phosphorous 3.3 mg/dL (2.7-4.5); Potassium 3.6 mEq/L (3.5-5.1)
[2021-03-06] MEDS ORDERED: lisinopriL 5 MG TABLET PO SCH (09:00)
[2021-03-06] MEDS ORDERED: Budesonide/Formoterol 160/4.5 1 PUFF INH IH SCH (10:00)
[2021-03-06] MEDS ORDERED: Levalbuterol Neb 1.25 MG/3 ML IH PRN (10:04)
[2021-03-06] MEDS ORDERED: cilostazoL 100 MG TABLET PO SCH (11:00)
[2021-03-06] MEDS ORDERED: Apixaban 5 MG TABLET PO SCH (11:00)
[2021-03-06 16:51] VITALS: BP 106/47
== END 2021-03-06 18:15 | disposition home health service (06) ==
LOC: EMEROOARM 17:29 → 2ANU 17:29 → SUATTDRO 23:34 → 2NNU 03-06 00:15
PROVIDERS: ADMIT Internal Medicine; ATTEND Internal Medicine

== ENCOUNTER 2021-07-17 11:10 | Inpatient (IN) ==
[2021-07-17] MEDS ORDERED: *HR* Atropine Sulfate 1 MG/10 ML SYRINGE IVP ONE (11:18)
[2021-07-17] MEDS ORDERED: 0.9 % Sodium Chloride 1,000 ML IVC ONE (11:18)
[2021-07-17 12:10] LABS: Bacteria,Urine Few per hpf (None-Few); Bilirubin,Urine Negative (Negative); Blood,Urine Negative (Negative); Clarity,Urine Clear (Clear); Color,Urine Light-Yellow (Yellow); Glucose,Urine (UA) 100 mg/dL (Normal); Ketones,Urine Negative (Negative); Leukocyte Esterase,Urine Negative (Negative); Mucus,Urine Few per lpf (None-Few); Nitrite,Urine Negative (Negative); Protein,Urine Trace mg/dL (Neg-Trace); Specific Gravity,Urine 1.013 (1.010-1.025); Squamous Epithelial Cell,Urine Few per hpf (None-Few); Transitional Epi Cells,Urine Few per hpf (None-Few); Urobilinogen,Urine Normal (Normal)
[2021-07-17 12:39] LABS: Hemoglobin 9.4 g/dL (11.5-15.4)
[2021-07-17 12:40] LABS: Hematocrit 33.4 % (35.3-44.9); Mean Corpuscular HGB Conc 28.1 g/dL (31.6-35.5); Mean Corpuscular Volume 85.2 fL (83.0-100.0); Mean Platelet Volume 10.8 fL (9.4-12.4); Platelet Count 188 K/mcL (140-400); Red Blood Count 3.92 M/mcL (3.82-4.97); Red Cell Distribution Width 15.8 % (11.5-14.5); White Blood Count 7.1 K/mcL (4.3-11.1)
[2021-07-17 12:50] LABS: Prothrombin Time 11.5 Seconds (9.4-12.1)
[2021-07-17 13:06] LABS: Calcium 9.4 mg/dL (8.6-10.3); Magnesium 2.3 mg/dL (1.6-2.6); Potassium 4.3 mEq/L (3.5-5.1); Troponin I 0.04 ng/mL (< 0.04)
[2021-07-17 13:17] LABS: Thyroid Stimulating Hormone 0.795 mcIU/mL (0.340-5.600)
[2021-07-17 14:11] LABS: Anisocytosis 1+ (Not Present); Hypochromasia Present (Not Present); Lymphocytes # 0.4 K/mcL (0.6-4.6); Monocytes # 0.6 K/mcL (0.0-1.3); Neutrophils # 6.1 K/mcL (1.6-8.9); Platelet Estimate Normal (Normal); Poikilocytosis 1+ (Not Present)
[2021-07-17] MEDS ORDERED: Naloxone 0.4 MG/ML INJ IVP PRN (14:39)
[2021-07-17] MEDS ORDERED: Ondansetron 4 MG/2 ML VIAL IVP PRN (14:39)
[2021-07-17] MEDS ORDERED: Acetaminophen 325 MG TABLET PO PRN (14:39)
[2021-07-17] MEDS ORDERED: D5% in 0.45% NACL 1,000 ML IVC SCH (14:45)
[2021-07-17] MEDS ORDERED: Perflutren Lipid Microsphere 1.3 ML in 0.9 % Sodium Chloride 8.7 ML IVP PRN (15:04)
[2021-07-17] MEDS ORDERED: D5% in Water 1,000 ML IVC PRN (15:49)
[2021-07-17] MEDS ORDERED: *HR* Dextrose 50 % in Water (Syg) 50 ML SYRINGE IVP PRN (15:49)
[2021-07-17] MEDS ORDERED: Dextrose Gel 15 GM/37.5 ML TUBE PO PRN ×2 (15:49)
[2021-07-17] MEDS ORDERED: *HR* Heparin 5,000 UNIT/ML VIAL IVP ONE ×2 (16:28→20:00)
[2021-07-17] MEDS ORDERED: *HR* Heparin 5,000 UNIT/ML VIAL IVP PRN ×2 (16:28)
[2021-07-17] MEDS ORDERED: Heparin 25,000UNIT/250ML 1/2NS 25,000 UNIT/250 ML IV.SOLN IVC SCH (16:30)
[2021-07-17] MEDS: Insulin LISPRO 300 UNITS/3 ML VIAL SUBQ SCH ×2 (20:48→23:52)
[2021-07-17 21:04] LABS: Hemoglobin 8.6 g/dL (11.5-15.4)
[2021-07-17 21:05] LABS: Hematocrit 30.6 % (35.3-44.9); Mean Corpuscular HGB Conc 28.1 g/dL (31.6-35.5); Mean Corpuscular Hemoglobin 23.5 pg (28.0-33.3); Mean Corpuscular Volume 83.6 fL (83.0-100.0); Mean Platelet Volume 10.2 fL (9.4-12.4); Platelet Count 165 K/mcL (140-400); Red Blood Count 3.66 M/mcL (3.82-4.97); Red Cell Distribution Width 15.9 % (11.5-14.5); White Blood Count 5.9 K/mcL (4.3-11.1)
[2021-07-17 21:12] LABS: INR 1.1; Prothrombin Time 11.8 Seconds (9.4-12.1)
[2021-07-17] MEDS: Heparin 25,000UNIT/250ML 1/2NS 25,000 UNIT/250 ML IV.SOLN IVC SCH (21:43)
[2021-07-18 04:07] LABS: Basophils % 0.3 %; Eosinophils # 0.1 K/mcL (0.0-0.6); Eosinophils % 2.3 %; Hematocrit 28.2 % (35.3-44.9); Hemoglobin 8.2 g/dL (11.5-15.4); Immature Granulocytes % 0.3 % (0-4); Lymphocytes % 17.9 %; Mean Corpuscular HGB Conc 29.1 g/dL (31.6-35.5); Mean Corpuscular Hemoglobin 24.4 pg (28.0-33.3); Mean Corpuscular Volume 83.9 fL (83.0-100.0); Mean Platelet Volume 10.7 fL (9.4-12.4); Monocytes # 0.7 K/mcL (0.0-1.3); Monocytes % 11.8 %; Neutrophils # 3.9 K/mcL (1.6-8.9); Platelet Count 173 K/mcL (140-400); Red Blood Count 3.36 M/mcL (3.82-4.97); Red Cell Distribution Width 15.9 % (11.5-14.5); Segmented Neutrophils % 67.4 %; White Blood Count 5.8 K/mcL (4.3-11.1)
[2021-07-18 04:30] LABS: BUN/Creatinine Ratio 24 (6-26); Blood Urea Nitrogen 24 mg/dL (8-23); Calcium 8.5 mg/dL (8.6-10.3); Carbon Dioxide 29 mEq/L (23-29); Chloride 111 mEq/L (98-107); Glucose 117 mg/dL (70-105); Magnesium 2.1 mg/dL (1.6-2.6); Osmolality,Calculated 305 (280-300); Phosphorous 2.5 mg/dL (2.7-4.5); Sodium 145 mEq/L (136-145); eGFR For African Americans > 60 (> 60); eGFR For Non-African Americans 54 (> 60)
[2021-07-18 05:52] LABS: Folate > 22.3 ng/mL (3.0-16.0); Vitamin B12 > 1500 pg/mL (250-1100)
[2021-07-18] MEDS: Insulin LISPRO 300 UNITS/3 ML VIAL SUBQ SCH ×4 (07:32→21:12)
[2021-07-18 08:44] LABS: Acinetobacter baumannii by PCR Not Detected (Not Detect); Candida albicans by PCR Not Detected (Not Detect); Candida glabrata by PCR Not Detected (Not Detect); Candida krusei by PCR Not Detected (Not Detect); Candida parapsilosis by PCR Not Detected (Not Detect); Candida tropicalis by PCR Not Detected (Not Detect); Enterobacter cloacae Cmplx PCR Not Detected (Not Detect); Enterobacteriaceae by PCR Not Detected (Not Detect); Enterococcus by PCR Not Detected (Not Detect); Escherichia coli by PCR Not Detected (Not Detect); Klebsiella oxytoca by PCR Not Detected (Not Detect); Klebsiella pneumoniae by PCR Not Detected (Not Detect); Proteus by PCR Not Detected (Not Detect); Pseudomonas aeruginosa by PCR Not Detected (Not Detect); Serratia marcescens by PCR Not Detected (Not Detect); Staphylococcus aureus by PCR Not Detected (Not Detect); Staphylococcus by PCR DETECTED (Not Detect); Streptococcus agalactiae(B)PCR Not Detected (Not Detect); Streptococcus by PCR Not Detected (Not Detect); Streptococcus pneumoniae PCR Not Detected (Not Detect); Streptococcus pyogenes (A) PCR Not Detected (Not Detect); mecA Methicillin-Resist Gene DETECTED (Not Detect)
[2021-07-18] MEDS: ceFAZolin 1,000 MG in Water for inj. (sterile) 10 ML IVP SCH ×2 (12:02→16:04)
[2021-07-18] MEDS: Azithromycin 250 MG TABLET PO SCH (12:02)
[2021-07-18] MEDS: Heparin 25,000UNIT/250ML 1/2NS 25,000 UNIT/250 ML IV.SOLN IVC SCH (22:23)
[2021-07-19 05:17] LABS: Basophils % 0.8 %; Eosinophils # 0.3 K/mcL (0.0-0.6); Eosinophils % 6.9 %; Hematocrit 30.8 % (35.3-44.9); Hemoglobin 8.8 g/dL (11.5-15.4); Immature Granulocytes % 0.4 % (0-4); Lymphocytes % 20.8 %; Mean Corpuscular HGB Conc 28.6 g/dL (31.6-35.5); Mean Corpuscular Hemoglobin 24.2 pg (28.0-33.3); Mean Corpuscular Volume 84.6 fL (83.0-100.0); Mean Platelet Volume 10.5 fL (9.4-12.4); Monocytes # 0.6 K/mcL (0.0-1.3); Monocytes % 13.2 %; Neutrophils # 2.8 K/mcL (1.6-8.9); Platelet Count 155 K/mcL (140-400); Red Blood Count 3.64 M/mcL (3.82-4.97); Red Cell Distribution Width 15.5 % (11.5-14.5); Segmented Neutrophils % 57.9 %; White Blood Count 4.8 K/mcL (4.3-11.1)
[2021-07-19 05:40] LABS: Anisocytosis 1+ (Not Present); Hypochromasia Present (Not Present)
[2021-07-19 05:41] LABS: Microcytosis Present (Not Present); Platelet Estimate Normal (Normal)
[2021-07-19 05:51] LABS: BUN/Creatinine Ratio 17 (6-26); Blood Urea Nitrogen 17 mg/dL (8-23); Calcium 8.8 mg/dL (8.6-10.3); Carbon Dioxide 32 mEq/L (23-29); Chloride 111 mEq/L (98-107); Glucose 115 mg/dL (70-105); Osmolality,Calculated 304 (280-300); Potassium 3.8 mEq/L (3.5-5.1); Sodium 146 mEq/L (136-145); eGFR For African Americans > 60 (> 60); eGFR For Non-African Americans 52 (> 60)
[2021-07-19] MEDS: Insulin LISPRO 300 UNITS/3 ML VIAL SUBQ SCH ×3 (07:42→16:21)
[2021-07-19] MEDS: ceFAZolin 1,000 MG in Water for inj. (sterile) 10 ML IVP SCH ×3 (09:42→16:20)
[2021-07-19 10:30] VITALS: TEMP 97.6
[2021-07-19] MEDS: Azithromycin 250 MG TABLET PO SCH (13:13)
[2021-07-19 15:11] VITALS: BP 115/61; PULSE 90; O2SAT 96
== END 2021-07-19 18:27 | disposition home or self-care (01) | DRG 280 ==
LOC: EMEROOARM 11:10 → 3BNU 11:10
PROVIDERS: ADMIT General Practice; ATTEND General Practice

== ENCOUNTER 2021-07-23 19:01 | Observation (INO) ==
[2021-07-24 00:17] LABS: Hemoglobin 9.3 g/dL (11.5-15.4)
[2021-07-24 00:19] LABS: Basophils % 0.8 %; Eosinophils # 0.3 K/mcL (0.0-0.6); Eosinophils % 6.3 %; Hematocrit 32.5 % (35.3-44.9); Immature Granulocytes % 0.4 % (0-4); Lymphocytes # 1.3 K/mcL (0.6-4.6); Lymphocytes % 24.1 %; Mean Corpuscular HGB Conc 28.6 g/dL (31.6-35.5); Mean Corpuscular Hemoglobin 23.7 pg (28.0-33.3); Mean Corpuscular Volume 82.9 fL (83.0-100.0); Mean Platelet Volume 10.4 fL (9.4-12.4); Monocytes # 0.7 K/mcL (0.0-1.3); Monocytes % 12.8 %; Neutrophils # 2.9 K/mcL (1.6-8.9); Platelet Count 191 K/mcL (140-400); Red Blood Count 3.92 M/mcL (3.82-4.97); Red Cell Distribution Width 16.2 % (11.5-14.5); Segmented Neutrophils % 55.6 %; White Blood Count 5.2 K/mcL (4.3-11.1)
[2021-07-24 00:25] LABS: Calcium 9.2 mg/dL (8.6-10.3); Potassium 3.9 mEq/L (3.5-5.1)
[2021-07-24] MEDS ORDERED: cefTRIAXone 1,000 MG in Water for inj. (sterile) 10 ML IVP SCH (02:03)
[2021-07-24] MEDS ORDERED: Naloxone 0.4 MG/ML INJ IVP PRN (02:04)
[2021-07-24] MEDS ORDERED: Acetaminophen 325 MG TABLET PO PRN (02:10)
[2021-07-24] MEDS ORDERED: Melatonin 3 MG TABLET PO PRN (02:10)
[2021-07-24] MEDS ORDERED: Albuterol 2.5 MG/3 ML NEBULIZER IH PRN (02:46)
[2021-07-24] MEDS ORDERED: Azithromycin 500 MG in 0.9 % Sodium Chloride 250 ML IVPB SCH (03:00)
[2021-07-24] MEDS ORDERED: *HR* Dextrose 50 % in Water (Syg) 50 ML SYRINGE IVP PRN (03:59)
[2021-07-24] MEDS ORDERED: Dextrose Gel 15 GM/37.5 ML TUBE PO PRN ×2 (03:59)
[2021-07-24] MEDS ORDERED: D5% in Water 1,000 ML IVC PRN (03:59)
[2021-07-24 06:38] LABS: Immature Granulocytes % 0.4 % (0-4); Monocytes % 12.9 %; Red Cell Distribution Width 15.9 % (11.5-14.5)
[2021-07-24 06:50] LABS: Basophils % 0.6 %; Eosinophils # 0.3 K/mcL (0.0-0.6); Eosinophils % 5.7 %; Hematocrit 32.7 % (35.3-44.9); Hemoglobin 9.5 g/dL (11.5-15.4); Lymphocytes # 0.9 K/mcL (0.6-4.6); Lymphocytes % 19.5 %; Mean Corpuscular HGB Conc 29.1 g/dL (31.6-35.5); Mean Corpuscular Hemoglobin 24.2 pg (28.0-33.3); Mean Corpuscular Volume 83.2 fL (83.0-100.0); Mean Platelet Volume 10.6 fL (9.4-12.4); Monocytes # 0.6 K/mcL (0.0-1.3); Neutrophils # 2.9 K/mcL (1.6-8.9); Platelet Count 178 K/mcL (140-400); Red Blood Count 3.93 M/mcL (3.82-4.97); Segmented Neutrophils % 60.9 %; White Blood Count 4.7 K/mcL (4.3-11.1)
[2021-07-24 06:53] LABS: Albumin 3.5 g/dL (3.5-5.7); Albumin/Globulin Ratio 1.5 (1.1-2.2); Bilirubin,Total 0.4 mg/dL (0.3-1.0); Globulin 2.3 g/dL (2.4-3.5); Potassium 3.9 mEq/L (3.5-5.1); Total Protein 5.8 g/dL (6.4-8.9)
[2021-07-24 07:16] LABS: Hypochromasia Present (Not Present); Microcytosis Present (Not Present); Platelet Estimate Normal (Normal)
[2021-07-24] MEDS: Insulin LISPRO 300 UNITS/3 ML VIAL SUBQ SCH ×3 (07:45→16:05)
[2021-07-24] MEDS: Apixaban 2.5 MG TABLET PO SCH ×2 (08:46→20:53)
[2021-07-24] MEDS: Aspirin Enteric Coated 81 MG Tablet PO SCH (08:47)
[2021-07-24] MEDS ORDERED: Perflutren Lipid Microsphere 1.3 ML in 0.9 % Sodium Chloride 8.7 ML IVP PRN (15:59)
[2021-07-24] MEDS ORDERED: Vancomycin 1,500 MG/265 ML IV.SOLN IVPB ONE (16:00)
[2021-07-24] MEDS ORDERED: Vancomycin 1 EACH in 0.9 % Sodium Chloride 250 ML IVPB PRN (16:00)
[2021-07-24] MEDS ORDERED: Cefepime HCl 1,000 MG in 0.9 % Sodium Chloride Mini Bag 100 ML IVPB SCH (18:00)
[2021-07-24] MEDS ORDERED: Insulin LISPRO 300 UNITS/3 ML VIAL SUBQ SCH (21:00)
[2021-07-25] MEDS: Cefepime HCl 1,000 MG in Water for inj. (sterile) 10 ML IVP SCH ×2 (00:06→11:20)
[2021-07-25 01:25] LABS: Red Cell Distribution Width 15.9 % (11.5-14.5)
[2021-07-25 01:26] LABS: Hematocrit 33.2 % (35.3-44.9); Hemoglobin 9.6 g/dL (11.5-15.4); Mean Corpuscular HGB Conc 28.9 g/dL (31.6-35.5); Mean Corpuscular Hemoglobin 24.1 pg (28.0-33.3); Mean Corpuscular Volume 83.2 fL (83.0-100.0); Mean Platelet Volume 10.6 fL (9.4-12.4); Platelet Count 189 K/mcL (140-400); Red Blood Count 3.99 M/mcL (3.82-4.97); White Blood Count 5.4 K/mcL (4.3-11.1)
[2021-07-25 01:46] LABS: Potassium 4.1 mEq/L (3.5-5.1)
[2021-07-25 06:49] VITALS: O2SAT 96
[2021-07-25] MEDS: Insulin LISPRO 300 UNITS/3 ML VIAL SUBQ SCH ×2 (08:17→11:24)
[2021-07-25] MEDS: Apixaban 2.5 MG TABLET PO SCH (08:26)
[2021-07-25] MEDS: Aspirin Enteric Coated 81 MG Tablet PO SCH (08:27)
[2021-07-25] MEDS ORDERED: Isosorbide MONOnitrate (24 HR) 30 MG TAB.ER.24H PO SCH (09:00)
[2021-07-25 09:04] VITALS: BP 144/79
[2021-07-25 13:12] VITALS: PULSE 57; TEMP 95.7
== END 2021-07-25 18:00 | disposition home or self-care (01) ==
LOC: EMEROOARM 19:01 → 3BNU 19:01 → SUATTDRO 07-24 00:45 → 3BNU 07-24 02:17
PROVIDERS: ADMIT Internal Medicine; ATTEND Registered Nurse

== ENCOUNTER 2021-11-01 16:47 | Inpatient (IN) ==
[2021-11-01] MEDS ORDERED: Naloxone 0.4 MG/ML INJ IVP PRN (23:51)
[2021-11-01] MEDS ORDERED: Melatonin 3 MG TABLET PO PRN (23:51)
[2021-11-01] MEDS ORDERED: Ondansetron 4 MG/2 ML VIAL IVP PRN (23:51)
[2021-11-02 02:03] LABS: Influenza A PCR Negative (Negative); Influenza B PCR Negative (Negative); Resp. Syncytial Virus PCR Negative (Negative)
[2021-11-02 02:04] LABS: SARS-CoV-2 by PCR (In House) Negative (Negative)
[2021-11-02] MEDS ORDERED: D5% in Water 1,000 ML IVC PRN (03:37)
[2021-11-02] MEDS ORDERED: Dextrose Gel 15 GM/37.5 ML TUBE PO PRN ×2 (03:37)
[2021-11-02] MEDS ORDERED: *HR* Dextrose 50 % in Water (Syg) 50 ML SYRINGE IVP PRN (03:37)
[2021-11-02] MEDS: Insulin LISPRO 300 UNITS/3 ML VIAL SUBQ SCH ×4 (05:00→23:56)
[2021-11-02 05:02] LABS: Basophils % 0.5 %; Eosinophils % 0.3 %; Hemoglobin 9.7 g/dL (11.5-15.4); Immature Granulocytes % 0.3 % (0-4)
[2021-11-02 05:03] LABS: Hematocrit 36.2 % (35.3-44.9); Lymphocytes # 0.5 K/mcL (0.6-4.6); Lymphocytes % 8.5 %; Mean Corpuscular HGB Conc 26.8 g/dL (31.6-35.5); Mean Corpuscular Hemoglobin 20.8 pg (28.0-33.3); Mean Corpuscular Volume 77.7 fL (83.0-100.0); Mean Platelet Volume 10.2 fL (9.4-12.4); Monocytes # 0.7 K/mcL (0.0-1.3); Monocytes % 11.4 %; Neutrophils # 4.9 K/mcL (1.6-8.9); Platelet Count 246 K/mcL (140-400); Red Blood Count 4.66 M/mcL (3.82-4.97); Red Cell Distribution Width 17.3 % (11.5-14.5); White Blood Count 6.2 K/mcL (4.3-11.1)
[2021-11-02 05:18] LABS: Anisocytosis 1+ (Not Present); Platelet Estimate Normal (Normal); Poikilocytosis 1+ (Not Present); Target Cells 1+ (Not Present)
[2021-11-02 05:22] LABS: Albumin 3.6 g/dL (3.5-5.7); Albumin/Globulin Ratio 1.3 (1.1-2.2); Bilirubin,Total 0.4 mg/dL (0.3-1.0); Calcium 9.1 mg/dL (8.6-10.3); Globulin 2.8 g/dL (2.4-3.5); Magnesium 2.1 mg/dL (1.6-2.6); Phosphorous 3.1 mg/dL (2.7-4.5); Potassium 4.2 mEq/L (3.5-5.1); Total Protein 6.4 g/dL (6.4-8.9)
[2021-11-02] MEDS: Aspirin Enteric Coated 81 MG Tablet PO SCH (07:45)
[2021-11-02] MEDS ORDERED: Perflutren Lipid Microsphere 1.3 ML in 0.9 % Sodium Chloride 8.7 ML IVP PRN (11:54)
[2021-11-02] MEDS ORDERED: Albuterol 2.5 MG/3 ML NEBULIZER IH PRN (13:36)
[2021-11-02] MEDS: Apixaban 2.5 MG TABLET PO SCH (22:04)
[2021-11-03 03:48] LABS: Basophils % 0.9 %; Immature Granulocytes % 0.2 % (0-4); Mean Corpuscular Volume 78.9 fL (83.0-100.0)
[2021-11-03 03:49] LABS: Basophils # 0.1 K/mcL (0.0-0.2); Eosinophils # 0.4 K/mcL (0.0-0.6); Eosinophils % 6.6 %; Hematocrit 38.2 % (35.3-44.9); Hemoglobin 10.3 g/dL (11.5-15.4); Lymphocytes # 0.7 K/mcL (0.6-4.6); Lymphocytes % 12.6 %; Mean Corpuscular Hemoglobin 21.3 pg (28.0-33.3); Monocytes # 0.7 K/mcL (0.0-1.3); Monocytes % 13.7 %; Neutrophils # 3.5 K/mcL (1.6-8.9); Platelet Count 226 K/mcL (140-400); Red Blood Count 4.84 M/mcL (3.82-4.97); Red Cell Distribution Width 17.2 % (11.5-14.5); White Blood Count 5.3 K/mcL (4.3-11.1)
[2021-11-03 03:55] LABS: Anisocytosis 1+ (Not Present); Hypochromasia Present (Not Present); Platelet Estimate Normal (Normal)
[2021-11-03 04:09] LABS: Calcium 9.1 mg/dL (8.6-10.3); Magnesium 2.2 mg/dL (1.6-2.6); Potassium 4.9 mEq/L (3.5-5.1)
[2021-11-03] MEDS: Insulin LISPRO 300 UNITS/3 ML VIAL SUBQ SCH ×4 (06:58→23:14)
[2021-11-03] MEDS: Cyanocobalamin (B-12) 1,000 MCG TABLET PO SCH (07:39)
[2021-11-03] MEDS: Furosemide 40 MG TABLET PO SCH (07:39)
[2021-11-03] MEDS: Isosorbide MONOnitrate (24 HR) 30 MG TAB.ER.24H PO SCH (07:39)
[2021-11-03] MEDS: Aspirin Enteric Coated 81 MG Tablet PO SCH (07:39)
[2021-11-03] MEDS: lisinopriL 5 MG TABLET PO SCH (07:39)
[2021-11-03 15:46] LABS: Total Protein,Pleural Fluid 3.3 g/dL
[2021-11-03 15:58] LABS: RBC,Pleural Fluid 68000 RBC/mcL
[2021-11-03 16:44] LABS: Appearance of Pleural Fl Hazy (Clear)
[2021-11-03 17:06] LABS: Basophils,Pleural Fluid 0 %; Eosinophils,Pleural Fluid 0 %; Monocytes,Pleural Fluid 0 %
[2021-11-03] MEDS ORDERED: 0.9 % Sodium Chloride 500 ML IV ONE (21:44)
[2021-11-04] MEDS ORDERED: Isovue-370 500 ML BOTTLE IVP ONE ×2 (07:19→12:21)
[2021-11-04] MEDS: Insulin LISPRO 300 UNITS/3 ML VIAL SUBQ SCH ×4 (08:02→21:39)
[2021-11-04] MEDS: Isosorbide MONOnitrate (24 HR) 30 MG TAB.ER.24H PO SCH (08:08)
[2021-11-04] MEDS: lisinopriL 5 MG TABLET PO SCH (08:08)
[2021-11-04] MEDS: Furosemide 40 MG TABLET PO SCH (08:08)
[2021-11-04] MEDS: Cyanocobalamin (B-12) 1,000 MCG TABLET PO SCH (08:08)
[2021-11-04] MEDS: Apixaban 2.5 MG TABLET PO SCH (08:08)
[2021-11-04] MEDS: Aspirin Enteric Coated 81 MG Tablet PO SCH (08:08)
[2021-11-04 16:17] LABS: Calcium 8.8 mg/dL (8.6-10.3); Potassium 3.9 mEq/L (3.5-5.1)
[2021-11-04 16:20] LABS: Segmented Neutrophils % 71.3 %
[2021-11-04 16:21] LABS: Basophils % 0.7 %; Eosinophils # 0.3 K/mcL (0.0-0.6); Eosinophils % 5.5 %; Hemoglobin 9.5 g/dL (11.5-15.4); Immature Granulocytes % 0.4 % (0-4); Lymphocytes # 0.4 K/mcL (0.6-4.6); Lymphocytes % 7.6 %; Mean Corpuscular HGB Conc 26.4 g/dL (31.6-35.5); Mean Corpuscular Hemoglobin 20.3 pg (28.0-33.3); Mean Corpuscular Volume 77.1 fL (83.0-100.0); Mean Platelet Volume 10.6 fL (9.4-12.4); Monocytes # 0.8 K/mcL (0.0-1.3); Monocytes % 14.5 %; Neutrophils # 3.9 K/mcL (1.6-8.9); Platelet Count 231 K/mcL (140-400); Red Blood Count 4.67 M/mcL (3.82-4.97); Red Cell Distribution Width 17.3 % (11.5-14.5); White Blood Count 5.5 K/mcL (4.3-11.1)
[2021-11-04 16:50] LABS: Hypochromasia Present (Not Present)
[2021-11-04 16:51] LABS: Large Platelets Present (Not Present); Ovalocytes 1+ (Not Present)
[2021-11-04] MEDS: Apixaban 5 MG TABLET PO SCH (21:40)
[2021-11-05 04:56] LABS: Immature Granulocytes % 0.2 % (0-4); Red Cell Distribution Width 17.2 % (11.5-14.5)
[2021-11-05 04:58] LABS: Basophils % 0.9 %; Eosinophils # 0.3 K/mcL (0.0-0.6); Eosinophils % 6.5 %; Hematocrit 33.4 % (35.3-44.9); Hemoglobin 9.2 g/dL (11.5-15.4); Lymphocytes # 0.5 K/mcL (0.6-4.6); Lymphocytes % 10.7 %; Mean Corpuscular HGB Conc 27.5 g/dL (31.6-35.5); Mean Corpuscular Volume 76.3 fL (83.0-100.0); Mean Platelet Volume 10.3 fL (9.4-12.4); Monocytes # 0.7 K/mcL (0.0-1.3); Monocytes % 15.9 %; Platelet Count 190 K/mcL (140-400); Red Blood Count 4.38 M/mcL (3.82-4.97); Segmented Neutrophils % 65.8 %; White Blood Count 4.5 K/mcL (4.3-11.1)
[2021-11-05 05:18] LABS: Calcium 8.8 mg/dL (8.6-10.3); Hypochromasia Present (Not Present); Ovalocytes 1+ (Not Present); Platelet Estimate Normal (Normal); Potassium 4.2 mEq/L (3.5-5.1)
[2021-11-05] MEDS: Insulin LISPRO 300 UNITS/3 ML VIAL SUBQ SCH ×4 (07:46→20:51)
[2021-11-05] MEDS: Isosorbide MONOnitrate (24 HR) 30 MG TAB.ER.24H PO SCH (07:46)
[2021-11-05] MEDS: lisinopriL 5 MG TABLET PO SCH (07:46)
[2021-11-05] MEDS: Cyanocobalamin (B-12) 1,000 MCG TABLET PO SCH (07:46)
[2021-11-05] MEDS: Aspirin Enteric Coated 81 MG Tablet PO SCH (07:46)
[2021-11-05] MEDS: Furosemide 40 MG TABLET PO SCH (07:46)
[2021-11-05] MEDS: Apixaban 5 MG TABLET PO SCH ×2 (07:46→20:50)
[2021-11-05] MEDS: polyethylene glycoL 3350 17 GM POWD.PACK PO SCH (20:50)
[2021-11-06] MEDS: lisinopriL 5 MG TABLET PO SCH (08:20)
[2021-11-06] MEDS: Aspirin Enteric Coated 81 MG Tablet PO SCH (08:20)
[2021-11-06] MEDS: Isosorbide MONOnitrate (24 HR) 30 MG TAB.ER.24H PO SCH (08:22)
[2021-11-06] MEDS: Apixaban 5 MG TABLET PO SCH ×2 (08:22→20:51)
[2021-11-06] MEDS: Cyanocobalamin (B-12) 1,000 MCG TABLET PO SCH (08:23)
[2021-11-06] MEDS: Insulin LISPRO 300 UNITS/3 ML VIAL SUBQ SCH ×4 (08:26→20:47)
[2021-11-06] MEDS: polyethylene glycoL 3350 17 GM POWD.PACK PO SCH (08:27)
[2021-11-06] MEDS: 0.9 % Sodium Chloride 1,000 ML IVC SCH (10:34)
[2021-11-06 17:33] LABS: Bacteria,Urine Few per hpf (None-Few); Bilirubin,Urine Negative (Negative); Blood,Urine Trace (Negative); Clarity,Urine Turbid (Clear); Color,Urine Light-Yellow (Yellow); Glucose,Urine (UA) Normal (Normal); Ketones,Urine Negative (Negative); Leukocyte Esterase,Urine Large (Negative); Mucus,Urine Few per lpf (None-Few); Nitrite,Urine Negative (Negative); PH,Urine 5.5 pH Units (5.0-8.0); Protein,Urine Trace mg/dL (Neg-Trace); RBC,Urine 0-3 per hpf (0-3); Specific Gravity,Urine 1.023 (1.010-1.025); Squamous Epithelial Cell,Urine Few per hpf (None-Few); Urobilinogen,Urine Normal (Normal); WBC,Urine TNTC per hpf (0-3)
[2021-11-06 22:45] LABS: Fluid Source for Cholesterol PLEURAL FLUID
[2021-11-07] MEDS ORDERED: *HR* Metoprolol 5 MG/5 ML VIAL IVP ONE (05:20)
[2021-11-07] MEDS: Insulin LISPRO 300 UNITS/3 ML VIAL SUBQ SCH ×4 (07:35→19:21)
[2021-11-07 09:28] LABS: Cholesterol,Body Fluid 74 mg/dL
[2021-11-07] MEDS: Isosorbide MONOnitrate (24 HR) 30 MG TAB.ER.24H PO SCH (10:04)
[2021-11-07] MEDS: Cyanocobalamin (B-12) 1,000 MCG TABLET PO SCH (10:04)
[2021-11-07] MEDS: Aspirin Enteric Coated 81 MG Tablet PO SCH (10:04)
[2021-11-07] MEDS: Apixaban 5 MG TABLET PO SCH ×2 (10:05→19:21)
[2021-11-07] MEDS: lisinopriL 5 MG TABLET PO SCH (10:05)
[2021-11-07] MEDS: polyethylene glycoL 3350 17 GM POWD.PACK PO SCH (10:05)
[2021-11-07] MEDS: 0.9 % Sodium Chloride 1,000 ML IVC SCH (12:00)
[2021-11-07 16:33] LABS: Calcium 9.2 mg/dL (8.6-10.3); Potassium 6.1 mEq/L (3.5-5.1)
[2021-11-08] MEDS: Insulin LISPRO 300 UNITS/3 ML VIAL SUBQ SCH ×4 (08:38→20:22)
[2021-11-08] MEDS: Cyanocobalamin (B-12) 1,000 MCG TABLET PO SCH (09:14)
[2021-11-08] MEDS: Aspirin Enteric Coated 81 MG Tablet PO SCH (09:14)
[2021-11-08] MEDS: lisinopriL 5 MG TABLET PO SCH (09:14)
[2021-11-08] MEDS: polyethylene glycoL 3350 17 GM POWD.PACK PO SCH (09:14)
[2021-11-08] MEDS: Apixaban 5 MG TABLET PO SCH ×2 (09:16→20:25)
[2021-11-08] MEDS: Isosorbide MONOnitrate (24 HR) 30 MG TAB.ER.24H PO SCH (09:17)
[2021-11-08] MEDS ORDERED: *HR* Dextrose 50 % in Water (Syg) 50 ML SYRINGE IVP ONE (14:00)
[2021-11-08] MEDS ORDERED: *HR* Dextrose 50 % in Water (Vial) 50 ML VIAL IVP ONE (14:00)
[2021-11-08] MEDS ORDERED: Insulin Human Regular 10 UNIT in 0.9 % Sodium Chloride 10 ML IV ONE (14:00)
[2021-11-08 14:16] LABS: Calcium 9.2 mg/dL (8.6-10.3)
[2021-11-08] MEDS ORDERED: SODIUM ZIRCONIUM CYCLOSILICATE 5 GM POWD.PACK PO ONE (15:29)
[2021-11-08] MEDS: Furosemide 40 MG TABLET PO SCH (16:07)
[2021-11-09 03:31] LABS: Platelet Count 154 K/mcL (140-400)
[2021-11-09 03:32] LABS: Hematocrit 34.8 % (35.3-44.9); Hemoglobin 9.7 g/dL (11.5-15.4); Mean Corpuscular HGB Conc 27.9 g/dL (31.6-35.5); Mean Corpuscular Hemoglobin 21.4 pg (28.0-33.3); Mean Corpuscular Volume 76.8 fL (83.0-100.0); Mean Platelet Volume 11.3 fL (9.4-12.4); Red Blood Count 4.53 M/mcL (3.82-4.97); White Blood Count 6.3 K/mcL (4.3-11.1)
[2021-11-09 03:33] LABS: Basophils # 0.1 K/mcL (0.0-0.2); Basophils % 1.3 %; Eosinophils # 0.3 K/mcL (0.0-0.6); Eosinophils % 5.1 %; Lymphocytes # 0.9 K/mcL (0.6-4.6); Monocytes % 16.1 %; Neutrophils # 3.9 K/mcL (1.6-8.9); Platelet Clumps Few (Not Present); Platelet Estimate Normal (Normal); Segmented Neutrophils % 61.6 %
[2021-11-09 03:34] LABS: Anisocytosis 1+ (Not Present); Hypochromasia Present (Not Present)
[2021-11-09] MEDS: Insulin LISPRO 300 UNITS/3 ML VIAL SUBQ SCH ×4 (07:23→20:36)
[2021-11-09] MEDS: Cyanocobalamin (B-12) 1,000 MCG TABLET PO SCH (09:30)
[2021-11-09] MEDS: Apixaban 5 MG TABLET PO SCH ×2 (09:30→20:10)
[2021-11-09] MEDS: lisinopriL 5 MG TABLET PO SCH (09:31)
[2021-11-09] MEDS: Isosorbide MONOnitrate (24 HR) 30 MG TAB.ER.24H PO SCH (09:31)
[2021-11-09] MEDS: Aspirin Enteric Coated 81 MG Tablet PO SCH (09:31)
[2021-11-09] MEDS: polyethylene glycoL 3350 17 GM POWD.PACK PO SCH (09:32)
[2021-11-09] MEDS: Furosemide 40 MG TABLET PO SCH (09:32)
[2021-11-09] MEDS ORDERED: SODIUM ZIRCONIUM CYCLOSILICATE 5 GM POWD.PACK PO ONE (14:00)
[2021-11-10] MEDS: Insulin LISPRO 300 UNITS/3 ML VIAL SUBQ SCH ×3 (07:51→16:57)
[2021-11-10] MEDS: Apixaban 5 MG TABLET PO SCH ×2 (09:10→21:51)
[2021-11-10] MEDS: polyethylene glycoL 3350 17 GM POWD.PACK PO SCH (09:10)
[2021-11-10] MEDS: Cyanocobalamin (B-12) 1,000 MCG TABLET PO SCH (09:10)
[2021-11-10] MEDS: Aspirin Enteric Coated 81 MG Tablet PO SCH (09:11)
[2021-11-10] MEDS: Furosemide 40 MG TABLET PO SCH (09:11)
[2021-11-10] MEDS: lisinopriL 5 MG TABLET PO SCH (09:11)
[2021-11-10] MEDS: Isosorbide MONOnitrate (24 HR) 30 MG TAB.ER.24H PO SCH (09:12)
[2021-11-10 11:00] LABS: Immature Granulocytes % 0.5 % (0-4)
[2021-11-10 11:02] LABS: Basophils % 0.7 %; Eosinophils # 0.2 K/mcL (0.0-0.6); Eosinophils % 4.7 %; Hematocrit 34.2 % (35.3-44.9); Hemoglobin 9.2 g/dL (11.5-15.4); Lymphocytes # 0.5 K/mcL (0.6-4.6); Lymphocytes % 12.2 %; Mean Corpuscular HGB Conc 26.9 g/dL (31.6-35.5); Mean Corpuscular Hemoglobin 21.4 pg (28.0-33.3); Mean Corpuscular Volume 79.7 fL (83.0-100.0); Mean Platelet Volume 11.1 fL (9.4-12.4); Monocytes # 0.8 K/mcL (0.0-1.3); Monocytes % 17.6 %; Platelet Count 150 K/mcL (140-400); Red Blood Count 4.29 M/mcL (3.82-4.97); Red Cell Distribution Width 18.2 % (11.5-14.5); Segmented Neutrophils % 64.3 %; White Blood Count 4.3 K/mcL (4.3-11.1)
[2021-11-10 11:11] LABS: Neutrophils # 2.8 K/mcL (1.6-8.9)
[2021-11-10 11:20] LABS: Magnesium 2.1 mg/dL (1.6-2.6); Phosphorous 3.1 mg/dL (2.7-4.5); Potassium 4.9 mEq/L (3.5-5.1)
[2021-11-10 11:34] LABS: Hypochromasia Present (Not Present); Ovalocytes 1+ (Not Present)
[2021-11-10 11:35] LABS: Anisocytosis 1+ (Not Present); Microcytosis Present (Not Present); Platelet Estimate Normal (Normal)
[2021-11-11 02:25] LABS: Hemoglobin 9.6 g/dL (11.5-15.4); Immature Granulocytes % 0.2 % (0-4)
[2021-11-11 02:27] LABS: Basophils % 0.9 %; Eosinophils # 0.2 K/mcL (0.0-0.6); Eosinophils % 4.5 %; Hematocrit 37.2 % (35.3-44.9); Lymphocytes # 0.6 K/mcL (0.6-4.6); Lymphocytes % 13.7 %; Mean Corpuscular HGB Conc 25.8 g/dL (31.6-35.5); Mean Corpuscular Hemoglobin 21.1 pg (28.0-33.3); Mean Corpuscular Volume 81.6 fL (83.0-100.0); Mean Platelet Volume 10.4 fL (9.4-12.4); Monocytes # 0.6 K/mcL (0.0-1.3); Monocytes % 13.3 %; Platelet Count 133 K/mcL (140-400); Red Blood Count 4.56 M/mcL (3.82-4.97); Red Cell Distribution Width 18.6 % (11.5-14.5); Segmented Neutrophils % 67.4 %; White Blood Count 4.5 K/mcL (4.3-11.1)
[2021-11-11 02:50] LABS: Calcium 8.8 mg/dL (8.6-10.3); Magnesium 2.2 mg/dL (1.6-2.6); Phosphorous 3.6 mg/dL (2.7-4.5); Potassium 5.3 mEq/L (3.5-5.1)
[2021-11-11 02:59] LABS: Anisocytosis 1+ (Not Present); Hypochromasia Present (Not Present); Platelet Estimate Normal (Normal); Poikilocytosis 1+ (Not Present)
[2021-11-11] MEDS: Insulin LISPRO 300 UNITS/3 ML VIAL SUBQ SCH ×4 (07:57→16:36)
[2021-11-11] MEDS ORDERED: SODIUM ZIRCONIUM CYCLOSILICATE 5 GM POWD.PACK PO ONE (07:57)
[2021-11-11] MEDS: polyethylene glycoL 3350 17 GM POWD.PACK PO SCH (09:02)
[2021-11-11] MEDS: Cyanocobalamin (B-12) 1,000 MCG TABLET PO SCH (09:33)
[2021-11-11] MEDS: Aspirin Enteric Coated 81 MG Tablet PO SCH (09:33)
[2021-11-11] MEDS: Furosemide 40 MG TABLET PO SCH (09:33)
[2021-11-11] MEDS: Apixaban 5 MG TABLET PO SCH (09:33)
[2021-11-11] MEDS: lisinopriL 5 MG TABLET PO SCH (09:34)
[2021-11-11] MEDS: Isosorbide MONOnitrate (24 HR) 30 MG TAB.ER.24H PO SCH (09:34)
[2021-11-11] MEDS: Acetaminophen 325 MG TABLET PO PRN ×2 (12:49→19:27)
[2021-11-11 19:07] VITALS: BP 109/58; PULSE 68; TEMP 97.3; O2SAT 90
== END 2021-11-11 19:29 | DRG 180 ==
LOC: 2ANU → SUATTDRO 23:55
PROVIDERS: ADMIT Internal Medicine; ATTEND Hospitalist